=== PATIENT | male | born 1970 | race Caucasian/White ===

== ENCOUNTER 2020-06-01 09:51 | Inpatient (IN) ==
[2020-06-01] MEDS ORDERED: TAMSULOSIN HCL 0.4 MG CAP PO ONE (12:39)
[2020-06-01] MEDS ORDERED: ALUMINUM/MAGNESIUM SUSP 30 ML UDC PO PRN (12:39)
[2020-06-01] MEDS ORDERED: MoRPHine SULFATE 2 MG/ML CARP IV PRN (12:39)
[2020-06-01] MEDS ORDERED: MoRPHine SULFATE 4 MG/ML 1 ML CARP\\VIAL IV PRN (12:39)
[2020-06-01] MEDS ORDERED: SODIUM CHLORIDE 0.9% 1000ML 1,000 ML IV SCH (12:45)
--- NOTE | 2020-06-01 12:48 | History & Physical Report ---
Date of Service June 01, 2020 Assessment & Plan (1) Renal colic: Patient be brought in our facility, copious IV fluids, pain control parenteral pain medications. 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 intake will hydrate and follow (5) DVT prophylaxis: SCDs for DVT prevention Admission and Anticipated Discharge Date Admission Date: June 01, 2020 History of Present Illness Primary Care Provider: Oumar Desai 49-year-old male who was in our facility 05/30/2020 for extracorporeal shockwave therapy on the left by Dr. Roberto due to concern for an 8 mm left-sided renal stone patient was discharged with presents to an outside emergency department with renal colic due to recent epilation here he was transferred our facility for definitive urological care. Reportedly there is a stone at the UVJ the patient's and discomfort will be admitted to our facility with urology consultation for possible cystoscopy and stone retrieval if the stone does not pass. Allergies Allergy/AdvReac Type Severity Reaction Status Date / Time No Known Allergies Allergy Verified 05/30/20 07:16 Home Medications Medication Instructions Recorded Confirmed Type ascorbate calcium (vitamin C) 500 500 mg PO DAILY 05/23/20 05/30/20 History mg tablet cholecalciferol (vitamin D3) 25 25 mcg PO DAILY 05/23/20 05/30/20 History mcg (1,000 unit) capsule omega-3 fatty acids 1,000 mg 1,000 mg PO DAILY 05/23/20 05/30/20 History capsule naproxen sodium [Aleve] 440 mg PO UD PRN 05/28/20 05/30/20 History Past Med/Surg History Medical History History of COVID-19 MAR 21 2020 - DR DESAI OFFICE IN [place] - "SINUS INFECTION" DENIES CURRENT SYMPTOMS, REPORTS HAD SINUS HEADACHE LAST WEEK Kidney stones Personal history of kidney stones Sinus infection HX OF FREQUENT SINUS INFECTIONS - MOST RECENT APPROX 1 MON AGO Surgical History History of inguinal hernia repair AGE 4 History of lithotripsy History of tonsillectomy Family History Mother Hypertension Social History Smoking Status: Never smoker Hx Alcohol Use: No Preferred Language: Wallisian Communication Ability: Effective Program Services Planner Required: No Beliefs That Will Affect Care: None marital status: Current Living Situation: Parent Current Living Situation Comment: DAD current occupational status: employed 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 Physical Exam Physical Exam: The patient appeared well nourished and normally developed. pt is in moderate pain Vital signs as documented. Head exam is normocephalic atraumatic no scleral icterus Neck is without JVD, thyromegaly, or carotid bruits. Lungs are clear to auscultation, diminished at bases Cardiac exam, Rhythm is regular.. No murmurs, rubs or gallops. Abdominal exam reveals normal bowel sounds, soft L cva tenderness Extremities are nonedematous and both pedal pulses are present Neurologic exam is alert and oriented, no focal loss of strength or sensation Skin is without bruises or rashes Psychologically is without concerns for anxiety or depression Code Status & VTE Plan VTE Prophylaxis Plan VTE Prophylaxis will be ordered: Yes PG Care Time/CCT Total # of Minutes Spent Total Time Spent with Patient: Total time spent is greater than 50% in coordination of care (as documented) at patient's floor/unit and/or counseling patient: Coding Level of Care Code 94013 Initial Inpt Care Lvl 2 Diagnoses Renal colic N23 Hypokalemia E87.6 COVID-19 U07.1 Elevated hemoglobin D58.2 DVT prophylaxis Z29.9
[2020-06-01] MEDS ORDERED: HYDROmorphone INJ 0.5 MG/0.5 ML SYR IV PRN (13:15)
[2020-06-01] MEDS: ONDANSETRON INJ 2 MG/ML 2 ML VIAL IV PRN (14:06)
[2020-06-01] MEDS: HYDROmorphone INJ 1 MG/ML SYRINGE IV PRN (14:06)
[2020-06-01] MEDS: POTASSIUM CHLORIDE 10 MEQ in SODIUM CHLORIDE 0.9% 1000ML 1,000 ML IV SCH ×2 (14:28→20:09)
[2020-06-01] MEDS: KETOROLAC TROMETHAMINE 15 MG/ML VIAL IV PRN (14:33)
[2020-06-01] MEDS: oxyCODONE HCL IR 5 MG TAB (IMMEDIATE RELEASE) PO PRN (17:06)
[2020-06-01] MEDS: PROMETHAZINE HCL 12.5 MG in SODIUM CHLORIDE 0.9% 50 ML IV PRN (17:06)
[2020-06-01] MEDS: TAMSULOSIN HCL 0.4 MG CAP PO SCH (20:10)
[2020-06-01] MEDS: ACETAMINOPHEN 325 MG TAB PO PRN (20:26)
[2020-06-02] MEDS: POTASSIUM CHLORIDE 10 MEQ in SODIUM CHLORIDE 0.9% 1000ML 1,000 ML IV SCH ×4 (01:14→16:02)
[2020-06-02] MEDS: KETOROLAC TROMETHAMINE 15 MG/ML VIAL IV PRN ×3 (03:31→17:39)
[2020-06-02] MEDS: oxyCODONE HCL IR 5 MG TAB (IMMEDIATE RELEASE) PO PRN (06:32)
[2020-06-02] MEDS: ONDANSETRON INJ 2 MG/ML 2 ML VIAL IV PRN (06:34)
[2020-06-02 06:55] LABS: BUN Creatinine Ratio 10.5 (10-20); Creatinine Clr Calc Pharmacy 59.6 ml/min; Est GFR (African American) 60.6; Est GFR (Non-African American) 52.2; Potassium 4.1 mmol/L (3.5-5.1)
[2020-06-02] MEDS: ACETAMINOPHEN 325 MG TAB PO PRN ×3 (08:01→20:37)
--- NOTE | 2020-06-02 10:15 | XRay Report ---
KUB HISTORY: Left-sided kidney stone COMPARISON: Abdomen and pelvis CT 05/24/2020. FINDINGS: The bowel gas pattern is unremarkable. There are no dilated loops of small bowel to suggest an obstruction. There are multiple stones within the lower pole the left kidney measuring up to 4 m m in size. Possible visualization of the patient's known 4 mm stone within the proximal left ureter. This overlies the left L3 transverse process. The right UVJ/bladder stone is not clearly identified. Multiple calcifications in the deep pelvis are consistent with phleboliths. No right renal calculi. N o pneumoperitoneum or pneumatosis. IMPRESSION: 1. Stable left-sided nephrolithiasis. 2. Possible visualization of the patient's known 4 mm stone within the proximal left ureter. This ove rlies the left L3 transverse process. 3. The patient's known right UVJ/bladder stone is not clearly identified. ACT 112: Negative or not required by law. Electronically signed by: Fredy Luz M.D. 06/02/2020 10:13 AM
--- NOTE | 2020-06-02 10:50 | Urology Progress Note ---
Date of Service June 02, 2020 Assessment & Plan Admission and Anticipated Discharge Date Admission Date: June 01, 2020 Subjective 49 yo male admitted Results & Data ([facility]) Vital Signs (Past 12 Hours) Vital Signs Temp Pulse Resp BP Pulse Ox 06/02/20 07:11 37.0 C 88 18 128/84 94 PG Care Time/CCT Total # of Minutes Spent Total Time Spent with Patient: Total time spent is greater than 50% in coordination of care (as documented) at patient's floor/unit and/or counseling patient: Coding
--- NOTE | 2020-06-02 10:54 | Urology Consultation ---
Date of Consultation June 02, 2020 Assessment & Plan (1) Calculus of proximal left ureter: 49 yo male s/p left ESWL on 05/30 admitted for left renal colic secondary to left proximal ureteral stone. - Hospital course and imaging reviewed - CT imaging from outside facility personally reviewed with Dr. Sue - ~4 mm left proximal ureteral calculus noted - KUB today noted 4 mm left proximal stone - reviewed with patient - Afebrile, nontoxic, creatinine is elevated at 1.53 - continue to monitor - UC&S prelim no growth - Left flank pain intermittent, but improved at present - Discussed options for stone management including trial of passage vs surgical intervention - Reviewed stone fragment is a passable size - he elects trial of passage for now, reassess tomorrow - Okay to have diet today, then make NPO at midnight - Strain all urine - Continue supportive care and prn analgesia - Will continue to follow with primary team History of Present Illness Reason for Consultation: Renal colic Attending Physician: Carlos Simpson, DO History of Present Illness 49 yo male s/p left ESWL admitted for left renal colic secondary to left proximal ureteral stone. PMHx of nephrolithiasis and hernia. Patient with history of left nephrolithiasis s/p left ESWL for 8 mm left renal stone on 05/30/[address] Roberto. He was transferred to [facility] from outside facility on 06/01/20 with renal colic secondary to left ureteral stone. CT A/P completed at outside facility noted 4 mm left proximal ureteral stone. He was afebrile and creatinine 1.53 on arrival. UC&S preliminary showing no growth. He was admitted by hospitalist service for further management. Our service is consulted due to renal colic. KUB today showed stable left-sided nephrolithiasis. Possible visualization of the patient's known 4 mm stone within the proximal left ureter. This overlies the left L3 transverse process. The patient's known bladder stone is not clearly identified. Patient awake, alert and resting in bed. Left flank pain is improved at present, rated 4/10 pain. He is voiding without difficulty. Mild dysuria, notes darker urine. No f/c/n/v. No additional concerns today. Allergies Allergy/AdvReac Type Severity Reaction Status Date / Time No Known Allergies Allergy Verified 05/30/20 07:16 Home Medications Medication Instructions Recorded Confirmed Type ascorbate calcium (vitamin C) 500 500 mg PO DAILY 05/23/20 05/30/20 History mg tablet cholecalciferol (vitamin D3) 25 25 mcg PO DAILY 05/23/20 05/30/20 History mcg (1,000 unit) capsule omega-3 fatty acids 1,000 mg 1,000 mg PO DAILY 05/23/20 05/30/20 History capsule naproxen sodium [Aleve] 440 mg PO UD PRN 05/28/20 05/30/20 History Patient History Medical History History of COVID-MAR 21 2020 - DR BASS OFFICE IN [place] - "SINUS INFECTION" DENIES CURRENT SYMPTOMS, REPORTS HAD SINUS HEADACHE LAST WEEK Kidney stones Personal history of kidney stones Sinus infection HX OF FREQUENT SINUS INFECTIONS - MOST RECENT APPROX 1 MON AGO Surgical History History of inguinal hernia repair AGE 4 History of lithotripsy History of tonsillectomy Family History Mother Hypertension Social History Smoking Status: Never smoker Hx Alcohol Use: No Hx Substance Use: No Preferred Language: Latvian Communication Ability: Effective Condenser Cleaner Required: No Beliefs That Will Affect Care: None marital status: Current Living Situation: Family Current Living Situation Comment: DAD current occupational status: employed 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 Other Information That Helps Us Care for You: No Feels Safe at Home: Yes Safety Concerns: Feels Safe At This Time Assistive Devices: None and Glasses Review of Systems Constitutional: as per Subjective / HPI Eyes: no problem reported Ear, Nose, Mouth, Throat: no problem reported Respiratory: no problem reported Cardiovascular: no problem reported Gastrointestinal: as per Subjective / HPI Genitourinary: + as per Subjective / HPI Musculoskeletal: no problem reported Integumentary: no problem reported Neurologic: no problem reported Psychiatric: no problem reported Physical Exam Constitutional: well developed and well nourished; no acute distress and not ill appearing Respiratory: normal respiratory effort and able to speak in complete sentences; no respiratory distress and no labored breathing Cardiovascular: Extremities: no pedal edema Gastrointestinal (Abdomen): Inspection/Auscultation: abdomen normal to inspection; abdomen not distended Percussion/Palpation: abdomen soft; abdomen nontender and no guarding Musculoskeletal: Head/Neck/Chest: normocephalic and head atraumatic Extremities: extremities normal to inspection Skin: no rashes, warm and dry Neurologic: moves all extremities and awake Psychiatric: A+Ox3, euthymic affect Genitourinary: no CVA tenderness Results & Data ([facility]) Vital Signs (Past 12 Hours) Vital Signs Temp Pulse Resp BP Pulse Ox 06/02/20 07:11 37.0 C 88 18 128/84 94 PG Care Time/CCT Total # of Minutes Spent Total Time Spent with Patient: Total time spent is greater than 50% in coordination of care (as documented) at patient's floor/unit and/or counseling patient: Coding Level of Care Code 16376 Inpt Consult Level 2 Diagnoses Calculus of proximal left ureter N20.1
[2020-06-02] MEDS: SODIUM CHLORIDE 0.9% 1000ML 1,000 ML IV SCH ×2 (15:59→23:14)
[2020-06-02] MEDS: TAMSULOSIN HCL 0.4 MG CAP PO SCH (20:38)
--- NOTE | 2020-06-03 00:23 | Hospitalist Progress Note ---
Date of Service June 02, 2020 Assessment & Plan (1) Renal colic: left sided pain, known 4mm stone in left ureter will check KUB again tomorrow, currently he has no pain and no hematuria, making a lot of urine continue flomax, trial of passage appreciate urology notes NPO after midnight in case he needs cystoscopy (2) Hypokalemia: resolved with K in the IV fluids change to NSS without K, K is 4.1 (3) COVID-19: History COVID-19 infection diagnosed 03/15/2020 completely asymptomatic and previous outpatient test on 05/26/20 is negative (4) Elevated hemoglobin: Patient is likely hemoconcentrated given his recent pain and decreased p.o. intake Hb down to 13 from 17 with hydration (5) DVT prophylaxis: SCDs for DVT prevention (6) Calculus of proximal left ureter: (7) Acute kidney injury: Cr up to 1.5 despite aggressive IV fluids could be post obstructive ATN? repeat BMP in the morning, continue NSS at 125cc/hr for one more liter drinking adequately Admission and Anticipated Discharge Date Admission Date: June 01, 2020 Subjective patient doing well this afternoon, he said he had not had pain for 3 hours no further hematuria and his urine appears clear d/w urology, no plans for procedure today, keep NPO after midnight in case he needs cystoscopy on 06/03 reviewed chart and labs, Cr up slightly at 1.5, electrolytes stable eating and drinking well, no dyspnea, no chest pain, no fever, no dysuria discussed that we will get a KUB in the morning, assess his stone position, might be able to go home on 06/03 he asks to be notified in the morning so he can arrange a ride, lives far away Review of Systems Review of Systems: All systems reviewed & are unremarkable except as noted in Subjective Genitourinary: + flank pain (left side, nearly resolved); no dysuria and no hematuria Physical Exam Constitutional: WD/WN, vitals as above Neck: trachea midline, no thyromegaly Respiratory: normal respiratory effort, lungs clear to auscultation Cardiovascular: RRR, no murmur, no edema Gastrointestinal (Abdomen): normal bowel sounds, soft, nontender, no hepatosplenomegaly Musculoskeletal: no cyanosis or clubbing, extremities motor strength 5/5 Skin: no rashes, warm and dry Neurologic: patellar DTR's 2+ bilat, sensation intact and PERRL, EOMI, accommodation nl, no face palsy, no dysarthria Psychiatric: A+Ox3, euthymic affect Lymphatic: no cervical or axillary lymphadenopathy Results & Data Results & Data ([facility]) Vital Signs (Past 12 Hours) Vital Signs Temp Pulse Resp BP Pulse Ox 06/02/20 22:35 37.1 C 82 16 132/83 92 06/02/20 15:56 37.2 C 82 18 142/95 H 97 Laboratory Results Laboratory Results - last 24 hr 06/02/20 06:10 Sodium 142 Potassium 4.1 Chloride 113 H Carbon Dioxide 25 Anion Gap 4.0 BUN 16 Creatinine 1.53 H Est Cr Clr Drug Dosing 59.6 Est GFR ( Amer) 60.6 Est GFR (Non-Af Amer) 52.2 BUN/Creatinine Ratio 10.5 Glucose 98 Calcium 8.0 L Magnesium 2.0 Medications Administered Current Inpatient Medications Acetaminophen (Acetaminophen 325 Mg Tab) 650 mg PO Q4H PRN PRN Reason: pain/fever Stop: 07/01/20 12:38 Last Admin: 06/02/20 20:37 Dose: 650 mg Documented by: Al Hydrox/Mg Hydrox/Simethicone (Aluminum/Magnesium Susp 30 Ml Udc) 30 ml PO Q6H PRN PRN Reason: Dyspepsia Stop: 07/01/20 12:38 Hydromorphone HCl (Hydromorphone Inj 0.5 Mg/0.5 Ml Syr) 0.5 mg IV Q4H PRN PRN Reason: Pain (rating 1-5) Stop: 06/15/20 13:14 Last Admin: 06/02/20 04:54 Dose: 0.5 mg Documented by: Hydromorphone HCl (Hydromorphone Inj 1 Mg/Ml Syringe) 1 mg IV Q4H PRN PRN Reason: Pain (rating 6-10) Stop: 06/15/20 13:14 Last Admin: 06/01/20 14:06 Dose: 1 mg Documented by: Promethazine HCl 12.5 mg/ (Sodium Chloride) 50.5 mls @ 202 mls/hr IV Q6H PRN PRN Reason: Nausea And Vomiting Stop: 07/01/20 13:14 Last Infusion: 06/01/20 17:34 Dose: Infused Documented by: Sodium Chloride (Nss 1000ml) 1,000 mls @ 125 mls/hr IV .Q8H DANIELLE Stop: 07/02/20 15:29 Last Admin: 06/02/20 23:14 Dose: 125 mls/hr Documented by: Ketorolac Tromethamine (Ketorolac Tromethamine 15 Mg/Ml Vial) 15 mg IV Q6H PRN PRN Reason: Pain Stop: 06/06/20 12:38 Last Admin: 06/02/20 17:39 Dose: 15 mg Documented by: Ondansetron HCl (Ondansetron Inj 2 Mg/Ml 2 Ml Vial) 4 mg IV Q6H PRN PRN Reason: Nausea Stop: 07/01/20 12:38 Last Admin: 06/02/20 06:34 Dose: 4 mg Documented by: Oxycodone HCl (Oxycodone Hcl Ir 5 Mg Tab (Immediate Release)) 10 mg PO Q6H PRN PRN Reason: Moderate Pain Stop: 06/15/20 12:38 Last Admin: 06/02/20 06:32 Dose: 10 mg Documented by: Tamsulosin HCl (Tamsulosin Hcl 0.4 Mg Cap) 0.4 mg PO HS DANIELLE Stop: 07/01/20 20:59 Last Admin: 06/02/20 20:38 Dose: 0.4 mg Documented by: PG Care Time/CCT Total # of Minutes Spent Total Time Spent with Patient: Total time spent is greater than 50% in coordination of care (as documented) at patient's floor/unit and/or counseling patient: Coding Level of Care Code 00843 Subseq Hosp Care Lvl 3 Diagnoses Renal colic N23 Hypokalemia E87.6 COVID-19 U07.1 Elevated hemoglobin D58.2 DVT prophylaxis Z29.9 Calculus of proximal left ureter N20.1 Acute kidney injury N17.9
[2020-06-03] MEDS: ACETAMINOPHEN 325 MG TAB PO PRN ×3 (01:17→23:47)
[2020-06-03] MEDS: ONDANSETRON INJ 2 MG/ML 2 ML VIAL IV PRN (05:08)
[2020-06-03 06:50] LABS: Hemoglobin 13.2 g/dL (14.0-18.0); Mean Corpuscular Hemoglobin 31.1 pg (25-34); Mean Corpuscular Hgb Conc 33.8 g/dL (32-36); Mean Corpuscular Volume 91.8 fL (80-100); Mean Platelet Volume 9.7 fL (7.4-10.4); Platelet Count 169 K/uL (130-400); RDW Coefficient of Variation 13.7 % (11.5-14.5); RDW Standard Deviation 45.2 fL (36.4-46.3); Red Blood Count 4.25 M/uL (4.7-6.1); White Blood Count 11.27 K/uL (4.8-10.8)
[2020-06-03 07:17] LABS: BUN Creatinine Ratio 8.1 (10-20); Calcium 8.2 mg/dl (8.5-10.1); Creatinine Clr Calc Pharmacy 47.5 ml/min; Est GFR (Non-African American) 39.7; Potassium 3.9 mmol/L (3.5-5.1)
[2020-06-03] MEDS: oxyCODONE HCL IR 5 MG TAB (IMMEDIATE RELEASE) PO PRN ×2 (07:43→19:45)
[2020-06-03] MEDS ORDERED: SODIUM CHLORIDE 0.65% NA SOLN 45 ML (OCEAN) PRN (08:17)
[2020-06-03] MEDS: PROMETHAZINE HCL 12.5 MG in SODIUM CHLORIDE 0.9% 50 ML IV PRN ×2 (08:23→16:09)
--- NOTE | 2020-06-03 08:30 | XRay Report ---
KUB HISTORY: Follow up study in a patient with ureteral calculus ureteral stone follow up COMPARISON: KUB 06/02/2020 FINDINGS: Nonobstructive bowel gas pattern. 4 mm calcification within the left abdomen at the level of L3-L4 air present previously noted ureteral calculus and has likely migrated distally 1-2 cm. Abe tionally, there is a 3 mm calcification just inferior to the left L3 transverse process. Left nephrol ithiasis redemonstrated. Unchanged pelvic basin calcifications. The previously noted distal right ure teral calculus is not definitively seen. No pneumoperitoneum or pneumatosis. No fracture. IMPRESSION: 1. 4 mm left ureteral calculus at the level of L3-L4 with possible additional 3 mm left ureteral calc ulus at the level of L3. 2. Left nephrolithiasis. ACT 112: Negative or not required by law. The above report was generated using voice recognition software. It may contain grammatical, syntax o r spelling errors. Electronically signed by: Rober Elias M.D. 06/03/2020 8:29 AM
--- NOTE | 2020-06-03 08:30 | Urology Progress Note ---
Date of Service June 03, 2020 Assessment & Plan (1) Calculus of proximal left ureter: 49 yo male s/p left ESWL on 05/30 admitted for left renal colic secondary to left proximal ureteral stone. - Patient afebrile. - Labs reviewed - white count slightly elevated, creating rising. - KUB reviewed - 4 mm left ureteral calculus at the level of L3-L4 with additional 3 mm left ureteral calculus at the level of L3. - Preliminary urine culture no growth. - Continue to strain urine. - Keep NPO for planned procedure today. Findings reviewed with Dr. Stoner. Given his left flank pain, nausea, and KEVIN in the context of obstructing 4 mm left proximal ureteral stone with additional 3 mm left ureteral calculus, will proceed with OR for cystoscopy, left retrograde pyelogram, left ureteroscopy, laser lithotripsy/stone treatment, and left stent placement. Risks and benefits discussed and to be reviewed with patient by Dr. Stoner. OR notified. COVID-19. EKG in chart. Will cover with IV Ciprofloxacin preoperatively. Admission and Anticipated Discharge Date Admission Date: June 01, 2020 Subjective Patient examined at bedside. Reports he is starting to not feel "great". States his left-sided flank pain has continued. Does have intermittent nausea, denies vomiting. Feels he is becoming congested in sinuses with left eye irritation. Reports intermittent dysuria. Denies hematuria. Denies urinary frequency/urgency. Has been out of bed ambulating without dizziness/lightheadedness. Denies fevers or chills. No stone passage overnight. Has been NPO since midnight. Chart review: Afebrile Wbc 11.27 Hgb 13.2 Creatinine 1.92 (previously 1.53). Preliminary urine culture no growth. Denies additional urologic concerns today. Review of Systems Constitutional: as per Subjective / HPI; no fever and no chills Gastrointestinal: as per Subjective / HPI and + nausea; no vomiting Genitourinary: + as per Subjective / HPI Neurologic: as per Subjective / HPI Physical Exam Constitutional: well developed and well nourished; no acute distress and not ill appearing Respiratory: normal respiratory effort and able to speak in complete sentences; no respiratory distress and no audible wheezes Cardiovascular: Extremities: no edema Gastrointestinal (Abdomen): Inspection/Auscultation: abdomen normal to inspection; abdomen not distended Percussion/Palpation: abdomen soft; abdomen nontender and no guarding Psychiatric: Orientation: alert, oriented x 3 and cooperative Affect: euthymic affect Genitourinary: no CVA tenderness Results & Data ([facility]) Vital Signs (Past 12 Hours) Vital Signs Temp Pulse Resp BP Pulse Ox 06/03/20 07:29 37.1 C 71 16 138/84 95 06/02/20 22:35 37.1 C 82 16 132/83 92 PG Care Time/CCT Total # of Minutes Spent Total Time Spent with Patient: Total time spent is greater than 50% in coordination of care (as documented) at patient's floor/unit and/or counseling patient: Coding Level of Care Code 10209 Subseq Hosp Care Lvl 2 Diagnoses Calculus of proximal left ureter N20.1
[2020-06-03] MEDS ORDERED: CIPROFLOXACIN / D5W 200 MG/100 ML BAG IV ONE (08:41)
--- NOTE | 2020-06-03 11:08 | Anesthesiology Consultation ---
Date of Service June 03, 2020 Assessment & Plan (1) Encounter for pre-operative examination: History Surgery Operation Date: 06/03/20 12:30 Proposed Procedures p Cystoscopy, Left Retrograde Pyelogram, Ureteroscopy, Laser Lithotripsy, Stent Placement - Guillermo Stoner MD Height/Weight Height: 5 ft 10 in Weight: 87.5 kg Allergies Allergy/AdvReac Type Severity Reaction Status Date / Time No Known Allergies Allergy Verified 05/30/20 07:16 Medications Home Medications Medication Instructions Recorded Confirmed Last Taken ascorbate calcium (vitamin C) 500 500 mg PO DAILY 05/23/20 05/30/20 05/26/20 mg tablet cholecalciferol (vitamin D3) 25 25 mcg PO DAILY 05/23/20 05/30/20 05/26/20 mcg (1,000 unit) capsule omega-3 fatty acids 1,000 mg 1,000 mg PO DAILY 05/23/20 05/30/20 05/26/20 capsule naproxen sodium [Aleve] 440 mg PO UD PRN 05/28/20 05/30/20 05/26/20 Active Medications Generic Name Dose Route Start Last Admin Trade Name Freq PRN Reason Stop Dose Admin Acetaminophen 650 mg 06/01/20 12:39 06/03/20 01:17 Acetaminophen 325 Mg Tab PO 07/01/20 12:38 650 mg Q4H PRN Administration pain/fever Hydromorphone HCl 0.5 mg 06/01/20 13:15 06/02/20 04:54 Hydromorphone Inj 0.5 Mg/0.5 Ml Syr IV 06/15/20 13:14 0.5 mg Q4H PRN Administration Pain (rating 1-5) Hydromorphone HCl 1 mg 06/01/20 13:15 06/01/20 14:06 Hydromorphone Inj 1 Mg/Ml Syringe IV 06/15/20 13:14 1 mg Q4H PRN Administration Pain (rating 6-10) Promethazine HCl 12.5 mg/ 50.5 mls @ 202 mls/hr 06/01/20 13:15 06/03/20 09:45 Sodium Chloride IV 07/01/20 13:14 Infused Q6H PRN Infusion Nausea And Vomiting Ketorolac Tromethamine 15 mg 06/01/20 12:39 06/02/20 17:39 Ketorolac Tromethamine 15 Mg/Ml Vial IV 06/06/20 12:38 15 mg Q6H PRN Administration Pain Ondansetron HCl 4 mg 06/01/20 12:39 06/03/20 05:08 Ondansetron Inj 2 Mg/Ml 2 Ml Vial IV 07/01/20 12:38 4 mg Q6H PRN Administration Nausea Oxycodone HCl 10 mg 06/01/20 12:39 06/03/20 07:43 Oxycodone Hcl Ir 5 Mg Tab (Immediate Release) PO 06/15/20 12:38 10 mg Q6H PRN Administration Moderate Pain Tamsulosin HCl 0.4 mg 06/01/20 21:00 06/02/20 20:38 Tamsulosin Hcl 0.4 Mg Cap PO 07/01/20 20:59 0.4 mg HS DANIELLE Administration NPO Date Last Intake of Fluids: 06/03/20 Time Last Intake of Fluids: 07:43 Last Intake of Fluids Comment: Small sip with medication. Okay per order. Date Last Intake of Solids: 06/02/20 Time Last Intake of Solids: 23:59 Past Medical History Medical History History of COVID-MAR 21 2020 - DR BASS OFFICE IN [place] - "SINUS INFECTION" DENIES CURRENT SYMPTOMS, REPORTS HAD SINUS HEADACHE LAST WEEK Kidney stones Personal history of kidney stones Sinus infection HX OF FREQUENT SINUS INFECTIONS - MOST RECENT APPROX 1 MON AGO Past Family History Family History Mother Hypertension Past Surgical History Surgical History History of inguinal hernia repair AGE 4 History of lithotripsy History of tonsillectomy Social History Smoking Status: Never smoker Hx Alcohol Use: No Hx Substance Use: No substance use type: does not use Physical Exam Vital Signs Last Vital Signs Temp 37.1 C 06/03/20 07:29 Pulse 71 06/03/20 07:29 Resp 16 06/03/20 07:29 BP 138/84 06/03/20 07:29 Pulse Ox 95 06/03/20 07:29 Testing Laboratory Results 06/03/20 06:37 06/03/20 06:37 06/01/20 20:00 Urine Culture - Final Urine,Clean Catch No growth - less than 1,000 colonies/mL.
[2020-06-03] MEDS ORDERED: fentaNYL citrate 100 MCG/2 ML VIAL IV PRN ×2 (11:10→12:26)
[2020-06-03] MEDS ORDERED: ATROPINE SULFATE 0.1 MG/ML 10ML SYR IV PRN ×2 (11:10→12:26)
[2020-06-03] MEDS ORDERED: ONDANSETRON INJ 2 MG/ML 2 ML VIAL IV PRN ×2 (11:10→12:26)
[2020-06-03] MEDS ORDERED: PROPOFOL IV EMULSION 10 MG/ML 20 ML VIAL IV ONE (11:33)
[2020-06-03] MEDS ORDERED: LIDOCAINE HCL 2% 2 ML VIAL/AMP(20MG/ML) INFIL ONE (11:33)
[2020-06-03] MEDS ORDERED: fentaNYL citrate 100 MCG/2 ML VIAL ONE ×3 (11:33→13:38)
[2020-06-03] MEDS ORDERED: MIDAZOLAM HCL 1 MG/ML 2ML VIAL ONE (11:34)
[2020-06-03] MEDS ORDERED: DEXAMETHASONE SOD INJ 4 MG/ML VIAL ONE ×2 (11:36→12:52)
[2020-06-03] MEDS ORDERED: ONDANSETRON INJ 2 MG/ML 2 ML VIAL ONE ×2 (11:36→12:52)
[2020-06-03] MEDS ORDERED: SCOPOLAMINE 1 MG TDSY TD ONE ×2 (12:25→12:26)
[2020-06-03] MEDS ORDERED: PROMETHAZINE HCL 12.5 MG in SODIUM CHLORIDE 0.9% 50 ML IV PRN (12:26)
[2020-06-03] MEDS ORDERED: LABETALOL HCL IV 5 MG/ML 20ML IV PRN (12:26)
[2020-06-03] MEDS ORDERED: DIATRIZOATE MEGLUMINE 30% 100ML VIAL INSTIL PRN (12:50)
[2020-06-03] MEDS ORDERED: KETOROLAC 30 MG/ML VIAL ONE (13:39)
--- NOTE | 2020-06-03 13:54 | Operative Report ---
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 Upon arrival, appropriate antibiotics and anesthesia were administered and the patient was placed in dorsal lithotomy position and prepped and draped in sterile fashion. To begin the case I passed a 22 Hungarian cystoscope with 30 degree lens. Inspection revealed a healthy-appearing urethra with modest sized prostate and healthy appearing bladder. I turned my attention of the left UO and cannulated it with 2 sensor wires and 10 Hungarian double-lumen catheter. The wires advanced without difficulty, I advanced a 10 Hungarian double-lumen catheter maximally but I met resistance in the proximal ureter parallel to the upper limit of the L3 vertebral body. I attempted to pass a flexible ureteroscope and again met resistance in this area. Inspection at that time revealed a strictured area. I could see through the strictured area but not visualize any stone in the immediate vicinity. I suspect the stricture is the reason he has not cleared stone after his recent ESWL despite good fragmentation. I subsequently positioned a balloon dilator across the strictured area. I delight dilated to low pressures and under fluoroscopic guidance saw the area open. My initial attempt to pass the scope did not result in success, I had to repeat the dilation again and was subsequently able to advance the scope. Inspection did reveal a crack through the mucosa in the area of the stricture but it was widely patent. There were no stones pushed through the mucosal wall. I was able to advance the scope into the kidney and find numerous stones. I used a 200 m laser fiber to treat approximately 8 fragments of stone. After feeling everything and been treated adequately I performed a careful exit ureteroscopy again inspecting the area of the prior dilation. It split for a very short segment approximately 2 mm on the medial side and approximately 8 mm on the lateral side. I did opacify the collecting system confirming that there was a small amount of extravasation around the site. The collecting system itself was healthy. The stent was positioned in the upper pole of the kidney without difficulty. I will plan to leave the stent for 2 to 3 weeks. He was subsequently extubated and taken to the PACU in stable condition. There were no complications. I attest to the content of the Intraoperative Record and any orders documented therein. Any exceptions are noted below.
--- NOTE | 2020-06-03 14:29 | Fluoroscopy Report ---
FL retrograde includes kub CLINICAL HISTORY: LT CYSTO/RETRO/LASER/STENT COMPARISON STUDY: None. FLUOROSCOPY TIME: 1.29 minutes. FINDINGS: 6 fluoroscopic spot images of the abdomen and pelvis demonstrate retrograde opacification o f the left renal collecting system with balloon dilatation and placement of a left ureteral stent. On ly the proximal portion of the stent is identified and appears in good position IMPRESSION: Fluoroscopy provided for left ureteral stent placement. ACT 112: Negative or not required by law. Electronically signed by: Fredy Luz M.D. 06/03/2020 2:28 PM
--- NOTE | 2020-06-03 14:43 | Anesthesiology Progress Note ---
Date of Service June 03, 2020 Anesthesia Post Procedure Vital Signs Vital Signs: Temp Pulse Pulse Resp BP Pulse Ox 06/03/20 14:40 37.2 C 85 14 128/85 95 06/03/20 14:30 81 16 134/86 96 06/03/20 14:20 82 14 124/86 93 06/03/20 14:10 82 19 130/81 95 06/03/20 14:00 36.2 C L 91 H 17 123/82 92 06/03/20 11:18 37.0 C 77 20 148/94 H 97 06/03/20 07:29 37.1 C 71 16 138/84 95 06/02/20 22:35 37.1 C 82 16 132/83 92 06/02/20 15:56 37.2 C 82 18 142/95 H 97 Pain Intensity Left Flank: Pain Intensity: 7 Transfer of Care Handoff Completed per policy Notes Mental Status: alert / awake / arousable Patient Amnestic to Procedure: Yes Nausea / Vomiting: adequately controlled Pain: adequately controlled Airway Patency, RR, SpO2: stable & adequate BP & HR: stable & adequate Hydration State: stable & adequate Anesthetic Complications: no major complications apparent
[2020-06-03] MEDS: CHECK SCOPOLAMINE PATCH PLACEMENT SCH ×2 (16:08→23:41)
[2020-06-03] MEDS: HYDROmorphone INJ 1 MG/ML SYRINGE IV PRN (16:09)
[2020-06-03] MEDS: TAMSULOSIN HCL 0.4 MG CAP PO SCH (19:45)
--- NOTE | 2020-06-03 20:20 | Hospitalist Progress Note ---
Date of Service June 03, 2020 Assessment & Plan (1) Renal colic: left sided pain, known 4mm stone in left ureter, also with 3mm stone higher up Cr rising to 1.9 today, KUB with stones in same position taken for cystoscopy on 06/[address] tSoner, found to have stricture in ureter that was passed laser lithotripsy of stones in kidney, left ureteral stent placed tolerated procedure well given Cipro perioperatively will check BMP and CBC in the morning if renal function improving and pain controlled will let him go home with urology follow up (2) Hypokalemia: resolved with K in the IV fluids 3.9 today (3) COVID-19: History COVID-19 infection diagnosed 03/15/2020 completely asymptomatic and previous outpatient test on 05/26/20 is negative (4) Elevated hemoglobin: Patient is likely hemoconcentrated given his recent pain and decreased p.o. intake Hb down to 13 from 17 with hydration (5) DVT prophylaxis: SCDs for DVT prevention (6) Calculus of proximal left ureter: (7) Acute kidney injury: Cr up to 1.9 despite aggressive IV fluids likely from obstruction in left ureter no further fluids needed now with stent across stricture repeat BMP in the morning Admission and Anticipated Discharge Date Admission Date: June 01, 2020 Subjective patient doing okay today after cystoscopy left stent placed in ureter after laser lithotripsy patient found to have stricture in left ureter, likely prevented stones from passing Cr was up to 1.9, electrolytes stable patient without chest pain, dyspnea, cough, fever/chills, nausea no flank pain after procedure he hopes to go home tomorrow, will check labs, see how he feels Review of Systems Review of Systems: All systems reviewed & are unremarkable except as noted in Subjective Physical Exam Constitutional: WD/WN, vitals as above Neck: trachea midline, no thyromegaly Respiratory: normal respiratory effort, lungs clear to auscultation Cardiovascular: RRR, no murmur, no edema Gastrointestinal (Abdomen): normal bowel sounds, soft, nontender, no hepatosplenomegaly Musculoskeletal: no cyanosis or clubbing, extremities motor strength 5/5 Skin: no rashes, warm and dry Neurologic: patellar DTR's 2+ bilat, sensation intact and PERRL, EOMI, accommodation nl, no face palsy, no dysarthria Psychiatric: A+Ox3, euthymic affect Lymphatic: no cervical or axillary lymphadenopathy Results & Data Results & Data ([facility]) Vital Signs (Past 12 Hours) Vital Signs Temp Pulse Pulse Resp BP Pulse Ox 06/03/20 19:35 37.1 C 83 18 148/93 H 95 06/03/20 17:48 37.6 C H 91 H 16 138/89 93 06/03/20 16:54 37.5 C 83 16 148/94 H 94 06/03/20 15:45 37.9 C H 85 16 120/79 92 06/03/20 15:15 37.6 C H 79 16 118/71 93 06/03/20 14:40 37.2 C 85 14 128/85 95 06/03/20 14:30 81 16 134/86 96 06/03/20 14:20 82 14 124/86 93 06/03/20 14:10 82 19 130/81 95 06/03/20 14:00 36.2 C L 91 H 17 123/82 92 06/03/20 11:18 37.0 C 77 20 148/94 H 97 Laboratory Results Laboratory Results - last 24 hr 06/03/20 06/03/20 06:37 06:37 WBC 11.27 H RBC 4.25 L Hgb 13.2 L Hct 39.0 L MCV 91.8 MCH 31.1 MCHC 33.8 RDW Std Deviation 45.2 RDW Coeff of Sulma 13.7 Plt Count 169 MPV 9.7 Sodium 140 Potassium 3.9 Chloride 111 H Carbon Dioxide 26 Anion Gap 3.0 BUN 16 Creatinine 1.92 H D Est Cr Clr Drug Dosing 47.5 Est GFR ( Amer) 46.0 Est GFR (Non-Af Amer) 39.7 BUN/Creatinine Ratio 8.1 L Glucose 94 Calcium 8.2 L Medications Administered Current Inpatient Medications Acetaminophen (Acetaminophen 325 Mg Tab) 650 mg PO Q4H PRN PRN Reason: pain/fever Stop: 07/01/20 12:38 Last Admin: 06/03/20 16:09 Dose: 650 mg Documented by: Al Hydrox/Mg Hydrox/Simethicone (Aluminum/Magnesium Susp 30 Ml Udc) 30 ml PO Q6H PRN PRN Reason: Dyspepsia Stop: 07/01/20 12:38 Atropine Sulfate (Atropine Sulfate 0.1 Mg/Ml 10ml Syr) 0.5 mg IV Q1M PRN PRN Reason: PACU Use-HR<40 &/or Bradycardi Stop: 06/03/20 20:26 Diatrizoate Meglumine (Diatrizoate Meglumine 30% 100ml Vial) 10 ml INSTIL UD PRN PRN Reason: Radiology Use Stop: 06/07/20 12:49 Last Admin: 06/03/20 13:04 Dose: 10 ml Documented by: Fentanyl Citrate (Fentanyl Citrate 100 Mcg/2 Ml Vial) 25 mcg IV Q5M PRN PRN Reason: PACU Use Only-Pain Stop: 06/03/20 20:26 Hydromorphone HCl (Hydromorphone Inj 0.5 Mg/0.5 Ml Syr) 0.5 mg IV Q4H PRN PRN Reason: Pain (rating 1-5) Stop: 06/15/20 13:14 Last Admin: 06/02/20 04:54 Dose: 0.5 mg Documented by: Hydromorphone HCl (Hydromorphone Inj 1 Mg/Ml Syringe) 1 mg IV Q4H PRN PRN Reason: Pain (rating 6-10) Stop: 06/15/20 13:14 Last Admin: 06/03/20 16:09 Dose: 1 mg Documented by: Promethazine HCl 12.5 mg/ (Sodium Chloride) 50.5 mls @ 202 mls/hr IV Q6H PRN PRN Reason: Nausea And Vomiting Stop: 07/01/20 13:14 Last Infusion: 06/03/20 16:32 Dose: Infused Documented by: Promethazine HCl 12.5 mg/ (Sodium Chloride) 50.5 mls @ 204 mls/hr IV ONCE PRN PRN Reason: PACU Use Only-Nausea/Vomiting Stop: 06/03/20 20:26 Ketorolac Tromethamine (Ketorolac Tromethamine 15 Mg/Ml Vial) 15 mg IV Q6H PRN PRN Reason: Pain Stop: 06/06/20 12:38 Last Admin: 06/02/20 17:39 Dose: 15 mg Documented by: Labetalol HCl (Labetalol Hcl Iv 5 Mg/Ml 20ml) 5 mg IV Q5M PRN PRN Reason: PACU Use-SBP>160 or DBP>100 Stop: 06/03/20 20:26 Miscellaneous (Check Scopolamine Patch Placement) 1 ea N/A QS DANIELLE Stop: 06/06/20 05:59 Last Admin: 06/03/20 16:08 Dose: 1 ea Documented by: Miscellaneous (Remove Transderm-Scop Patch) 1 ea N/A ONE ONE Stop: 06/06/20 06:01 Ondansetron HCl (Ondansetron Inj 2 Mg/Ml 2 Ml Vial) 4 mg IV Q6H PRN PRN Reason: Nausea Stop: 07/01/20 12:38 Last Admin: 06/03/20 05:08 Dose: 4 mg Documented by: Ondansetron HCl (Ondansetron Inj 2 Mg/Ml 2 Ml Vial) 4 mg IV ONCE PRN PRN Reason: PACU Use Only-Nausea/Vomiting Stop: 06/03/20 20:26 Oxycodone HCl (Oxycodone Hcl Ir 5 Mg Tab (Immediate Release)) 10 mg PO Q6H PRN PRN Reason: Moderate Pain Stop: 06/15/20 12:38 Last Admin: 06/03/20 19:45 Dose: 10 mg Documented by: Sodium Chloride (Sodium Chloride 0.65% Na Soln 45 Ml (Garber)) 0 sprays NA PRN PRN PRN Reason: Congestion Stop: 07/03/20 08:16 Tamsulosin HCl (Tamsulosin Hcl 0.4 Mg Cap) 0.4 mg PO HS DANIELLE Stop: 07/01/20 20:59 Last Admin: 06/03/20 19:45 Dose: 0.4 mg Documented by: PG Care Time/CCT Total # of Minutes Spent Total Time Spent with Patient: Total time spent is greater than 50% in coordination of care (as documented) at patient's floor/unit and/or counseling patient: Coding Level of Care Code 77890 Subseq Hosp Care Lvl 3 Diagnoses Renal colic N23 Hypokalemia E87.6 COVID-19 U07.1 Elevated hemoglobin D58.2 DVT prophylaxis Z29.9 Calculus of proximal left ureter N20.1 Acute kidney injury N17.9
[2020-06-04 06:41] LABS: Hemoglobin 13.2 g/dL (14.0-18.0); Mean Corpuscular Hemoglobin 30.8 pg (25-34); Mean Corpuscular Hgb Conc 33.8 g/dL (32-36); Mean Corpuscular Volume 90.9 fL (80-100); Mean Platelet Volume 9.9 fL (7.4-10.4); Platelet Count 208 K/uL (130-400); RDW Coefficient of Variation 13.4 % (11.5-14.5); Red Blood Count 4.29 M/uL (4.7-6.1); White Blood Count 15.72 K/uL (4.8-10.8)
[2020-06-04 07:13] LABS: BUN Creatinine Ratio 10.9 (10-20); Calcium 8.5 mg/dl (8.5-10.1); Est GFR (African American) 57.4; Est GFR (Non-African American) 49.5; Potassium 4.3 mmol/L (3.5-5.1)
[2020-06-04] MEDS: CHECK SCOPOLAMINE PATCH PLACEMENT SCH (07:54)
[2020-06-04] MEDS ORDERED: CIPROFLOXACIN 500 MG TAB PO STA (09:55)
--- NOTE | 2020-06-04 09:57 | Discharge Summary ---
Date of Service June 04, 2020 Admission HPI Per Admitting Provider 49-year-old male who was in our facility 05/30/2020 for extracorporeal shockwave therapy on the left by Dr. Roberto due to concern for an 8 mm left-sided renal stone patient was discharged with presents to an outside emergency department with renal colic due to recent epilation here he was transferred our facility for definitive urological care. Reportedly there is a stone at the UVJ the patient's and discomfort will be admitted to our facility with urology consultation for possible cystoscopy and stone retrieval if the stone does not pass. Principal Diagnosis Left ureteral stone causing obstruction, acute kidney injury Discharge Exam Constitutional WD/WN, vitals as above Neck trachea midline, no thyromegaly Respiratory normal respiratory effort, lungs clear to auscultation Cardiovascular RRR, no murmur, no edema Gastrointestinal (Abdomen) normal bowel sounds, soft, nontender, no hepatosplenomegaly Musculoskeletal no cyanosis or clubbing, extremities motor strength 5/5 Skin no rashes, warm and dry Neurologic patellar DTR's 2+ bilat, sensation intact and PERRL, EOMI, accommodation nl, no face palsy, no dysarthria Psychiatric A+Ox3, euthymic affect Lymphatic no cervical or axillary lymphadenopathy Discharge Data Allergies Allergy/AdvReac Type Severity Reaction Status Date / Time No Known Allergies Allergy Verified 05/30/20 07:16 Consultations 06/01/20 12:39 Consult Urology Routine Procedures Performed Operation Date: 06/03/20 12:30 Actual Procedures p Ureteroscopy, Laser Lithotripsy, ureteral dilation - Guillermo Stoner MD s Stent Placement, - Guillermo Stoner MD s Cystoscopy, Left Retrograde Pyelogram, - Guillermo Stoner MD Ordered Studies 06/03/20 12:00 FL retrograde includes kub Routine Hospital Course (1) Calculus of proximal left ureter: left sided pain, known 4mm stone in left ureter, also with 3mm stone higher up Cr rising to 1.9 on 06/03 taken for cystoscopy on 06/[address] Stoner, found to have stricture in ureter that was passed laser lithotripsy of stones in kidney, left ureteral stent placed tolerated procedure well given Cipro perioperatively Cr coming down to 1.6, making a lot of urine, electrolytes stable keep stent in place for 2-3 weeks, pain is well controlled give 3 days of cipro on discharge d/w Dr. Stoner stay off work the next week, get rest, stay well nourished and well hydrated (2) Acute kidney injury: Cr up to 1.9 on 06/03 despite aggressive IV fluids likely from obstruction in left ureter no further fluids needed now with stent across stricture Cr coming down to 1.6, electrolytes stable, making a lot of urine after obstruction relieved safe to discharge home (3) Renal colic: pain is much better since stent placed and laser lithotripsy of stones (4) Hypokalemia: resolved with K in the IV fluids (5) COVID-19: History COVID-19 infection diagnosed 03/15/2020 completely asymptomatic and previous outpatient test on 05/26/20 is negative (6) Elevated hemoglobin: Patient is likely hemoconcentrated given his recent pain and decreased p.o. intake Hb down to 13 from 17 with hydration (7) DVT prophylaxis: SCDs for DVT prevention Total Time Total Time Spent Total Time Spent (In Minutes): 35 minutes Total Time Includes: Examination of the Patient, Discharge Planning, Medication Reconciliation, Communication With Other Providers (spoke with Dr. Stoner) and Other (typed out letter for patient to cancel flight on 06/06/20) Discharge Plan Discharge Items Patient Disposition: Home - Self-Care Reason For Visit: URETEROLITHIASIS Discharge Diagnosis: Left sided kidney stone Acute kidney injury Condition on Discharge: Good Goals: maintain adequate hydration, pain control with narcotics follow up with urology in 2-3 weeks for stent removal Activity: Per Instructions section Lifting: None Bathing: No limitations Sexual Activity: Wait until after follow-up appointment Exercise/Sports: Gradually increase as tolerated Driving/Machine Use: no driving while taking Oxycodone Weightbearing: Full weightbearing Non-emergency contact: Primary Care Provider and Urologist Call non-emergency contact if: you have any medication questions, your symptoms worsen, your pain is not controlled and you have a fever Follow-up/Referrals: Guillermo Stoner MD [Physician] - 06/25/20 2:00 pm (2-3 weeks, stent removal) Oumar Desai [Primary Care Provider] - 06/13/20 9:45 am (one week PATIENT WILL MAKE F/U VISIT WITH HIS PCP. I'VE ATTEMPTED TO MAKE VIA PHONE, EMAIL AND LEAVING A MESSAGE. HE STATES, "IT'S ALWAYS LIKE THAT." I TOLD PATIENT IF THEY CALL ME WITH AN APPT, I WILL GLADLY CALL HIM.) Diet: Regular Addtl Attending Provider Instructions: Medications: - FLOMAX: take 0.4mg daily for 30 days, helps ureter relax - CIPRO: antibiotic, take for 3 days, just for empiric coverage after stent placed, you got a dose this morning so only need 5 doses at home, start tonight - OXYCODONE: take 1-2 tablets every 4 hours as needed for pain with stent/stones, do not take more than prescribed, do not drive after taking this medication Left ureteral stones, multiple stones in kidney treated with laser lithotripsy and left ureteral stent placement stay well hydrated, want urine to be clear / clear yellow use Tylenol 650mg every 6 hours as needed for pain, Oxycodone 1 tablet for moderate pain and 2 tablets for severe pain, every 4 hours do not use ibuprofen as your kidney function is still recovering follow up with Dr Stoner, urology, in 2-3 weeks for stent removal and follow up visit Pending Studies at Discharge: No Stand-Alone Forms: [employer], Opioid Pain Management, Work/School Release (Inpt), Smoking Cessation Medications and DC Order Prescriptions: New tamsulosin 0.4 mg Capsule 0.4 mg PO HS 30 Days Qty: 30 RF: 0 oxycodone 5 mg tablet 5 - 10 mg PO Q4 PRN (Reason: pain) Qty: 30 RF: 0 ciprofloxacin HCl [Cipro] 500 mg tablet 500 mg PO BID Qty: 5 RF: 0 Continued omega-3 fatty acids [Fish Oil Concentrate] 1,000 mg capsule 1,000 mg PO DAILY RF: 0 cholecalciferol (vitamin D3) 25 mcg (1,000 unit) capsule 25 mcg PO DAILY RF: 0 ascorbate calcium (vitamin C) 500 mg tablet 500 mg PO DAILY RF: 0 naproxen sodium [Aleve] 220 mg Capsule 440 mg PO UD PRN (Reason: Pain) RF: 0 Discharge Orders: Discharge Order (Routine); Ordered 06/04/20 Ordered By: Carlso Gallardo/Other Patient Handouts: Understanding Kidney Stones Admission Data Admit Date/Time: 06/01/20 12:32 Attending Provider: Carlos Simpson Admit Provider: Shanel Tran Primary Care Provider: Oumar Desai Other Providers: Ventura Sue Other Interventions: Discharge Summary Assessment (RN) Last Done: 06/04/20 10:10 Coding Level of Care Code D/C Day Management >30 mins Diagnoses Calculus of proximal left ureter N20.1 Acute kidney injury N17.9 Renal colic N23 Hypokalemia E87.6 COVID-19 U07.1 Elevated hemoglobin D58.2 DVT prophylaxis Z29.9
--- NOTE | 2020-06-04 10:39 | Urology Progress Note ---
Date of Service June 04, 2020 Assessment & Plan (1) Calculus of proximal left ureter: 49 yo male POD #1 s/p left ureteroscopy, laser lithotripsy, ureteral dilation and stent placement. - Doing well, progressing as expected - Afebrile, VSS, lab work reviewed - creatinine improved today - Tolerating left ureteral stent with minimal bother - Okay to d/c from perspective when medically stable - Recommend continue Tamsulosin, prn Oxybutynin for bladder spasms, prn Pyridium, and prn analgesia upon discharge - Expected clinical course reviewed, all questions answered - Follow-up appointment with our service in place Thank you for allowing us to participate in the acute care of Mr. Hawkins. Please reconsult us with additional questions, concerns or changes in patient status. Admission and Anticipated Discharge Date Admission Date: June 01, 2020 Subjective 49 yo male POD #1 s/p left ureteroscopy, laser lithotripsy, ureteral dilation and stent placement. Awake and resting in bed. No issues overnight. Tolerating ureteral stent with minimal bother. Notes mild left flank discomfort, pain worsens with voids - lasting about 5 minutes. Voiding spontaneously. Notes some urinary frequency, mild dysuria and darker urine. Tolerating PO diet. No nausea or vomiting. No fever or chills. Chart review: Afebrile, creatinine 1.60, WBC 15.72, Hgb 13.2. UC&S no growth. No additional concerns today. Review of Systems Constitutional: as per Subjective / HPI Gastrointestinal: as per Subjective / HPI Genitourinary: + as per Subjective / HPI Physical Exam Constitutional: well developed and well nourished; no acute distress and not ill appearing Respiratory: normal respiratory effort and able to speak in complete sentences; no respiratory distress and no labored breathing Cardiovascular: Extremities: no pedal edema Gastrointestinal (Abdomen): Inspection/Auscultation: abdomen normal to inspection; abdomen not distended Musculoskeletal: Head/Neck/Chest: normocephalic and head atraumatic Extremities: extremities normal to inspection Skin: no rashes, warm and dry Neurologic: moves all extremities and awake Psychiatric: A+Ox3, euthymic affect Results & Data ([facility]) Vital Signs (Past 12 Hours) Vital Signs Temp Pulse Pulse Resp BP Pulse Ox 06/04/20 10:10 36.7 C 91 H 73 18 118/80 93 06/04/20 07:30 36.7 C 73 18 118/80 93 06/04/20 03:47 36.9 C 80 18 130/85 95 06/04/20 03:00 37.0 C 84 18 124/83 92 06/03/20 23:18 37.4 C 73 16 130/83 92 PG Care Time/CCT Total # of Minutes Spent Total Time Spent with Patient: Total time spent is greater than 50% in coordin ation of care (as documented) at patient's floor/unit and/or counseling patient: Coding Level of Care Code 07508 Subseq Hosp Care Lvl 2 Diagnoses Calculus of proximal left ureter N20.1
== END 2020-06-04 13:54 | disposition home or self-care (01) | DRG 660 ==
LOC: 3E 12:32 → SUATTDRO 12:32